=== PATIENT | female | born 1955 | race Hispanic/Latino ===

== ENCOUNTER 2017-02-10 08:00 | Outpatient (CLI) | payer BC | END 2017-02-10 08:01 | disposition home or self-care (01) | LOC: BICMAMMO 08:00 | PROVIDERS: ATTEND Internal Medicine | DX: Z12.31 Encounter for screening mammogram for malignant neoplasm of breast (principal) | CPT/HCPCS: 77063; 77067; G0202 ==

== ENCOUNTER 2017-08-09 10:09 | Outpatient (CLI) | payer BC | END 2017-08-09 10:10 | disposition home or self-care (01) | LOC: BICRAD 10:09 | PROVIDERS: ATTEND Internal Medicine | DX: M54.9 Dorsalgia, unspecified (principal); M47.896 Other spondylosis, lumbar region; M47.894 Other spondylosis, thoracic region | CPT/HCPCS: 72072; 72100 ==

== ENCOUNTER 2018-01-24 07:25 | Emergency (ER) | payer BC ==
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
== END 2018-01-24 09:10 | disposition home or self-care (01) ==
LOC: ERS 07:25
DX: S20.219A Contusion of unspecified front wall of thorax, initial encounter (principal); I10 Essential (primary) hypertension; K21.9 Gastro-esophageal reflux disease without esophagitis; Z87.891 Personal history of nicotine dependence; Z79.899 Other long term (current) drug therapy; V43.62XA Car passenger injured in collision with other type car in traffic accident, initial encounter
CPT/HCPCS: 71046; G0390

== ENCOUNTER 2018-04-17 12:41 | Emergency (ER) | payer BC ==
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
[2018-04-17] MEDS ORDERED: Ketorolac Tromethamine 30 MG/ML VIAL ONE (16:25)
== END 2018-04-17 16:50 | disposition home or self-care (01) ==
LOC: ERS 12:41
DX: M25.561 Pain in right knee (principal); K21.9 Gastro-esophageal reflux disease without esophagitis; I10 Essential (primary) hypertension
CPT/HCPCS: 96372; J1885

== ENCOUNTER 2019-01-08 13:07 | Outpatient (CLI) | payer BC ==
--- NOTE | 2019-01-08 15:33 | BD ---
DEXA BONE DENSITY STUDY: HISTORY: Postmenopausal. LUMBAR SPINE BMD (g/cm2) T-SCORE L1 0.925 -0.6 L2 0.956 -0.7 L3 0.874 -1.9 L4 0.865 -1.8 TOTAL 0.902 -1.3 LEFT FEMORAL NECK 0.675 -1.6 TOTAL 0.915 -0.2 IMPRESSION: 1. Osteopenia of the lumbar spine and left femoral neck. 2. The 10 year fracture risk for a major osteoporotic fracture is 9.7% and for a hip fracture is 1%. These fracture probabilities are calculated for an untreated patient. POS: [facility]
== END 2019-01-08 13:08 | disposition home or self-care (01) ==
LOC: BICMAMMO 13:07
PROVIDERS: ATTEND Internal Medicine
DX: Z13.820 Encounter for screening for osteoporosis (principal); Z78.0 Asymptomatic menopausal state; M85.89 Other specified disorders of bone density and structure, multiple sites
CPT/HCPCS: 77063; 77067; 77080

== ENCOUNTER 2019-02-08 12:39 | Outpatient (CLI) | payer BC ==
--- NOTE | 2019-02-08 13:26 | MMO ---
Bilateral MAMMO Bilat Screen DDI+WILMA. CLINICAL HISTORY: Patient is 63 years old and is seen for screening. The patient has no family history of breast cancer. The patient has no personal history of cancer. VIEWS: The views performed were: bilateral craniocaudal with tomosynthesis and bilateral mediolateral oblique with tomosynthesis. FILMS COMPARED: The present examination has been compared to prior imaging studies performed at [facility] on 02/04/2015, 02/11/2015, 02/10/2016 and 02/10/2017. This study has been interpreted with the assistance of computer-aided detection. MAMMOGRAM FINDINGS: The breasts are heterogeneously dense, which could obscure a lesion on mammography. There is a new low density, oval mass measuring 16 millimeters with circumscribed margins seen in the left breast at 12 o'clock. In the right breast, there are no suspicious masses, calcifications or areas of architectural distortion. IMPRESSION: NEW MASS IN THE LEFT BREAST REQUIRES ADDITIONAL EVALUATION. AN ULTRASOUND EXAM IS RECOMMENDED. THE RESULTS OF THIS EXAM WERE SENT TO THE PATIENT. ACR BI-RADS Category 0 - Incomplete: Need additional imaging evaluation. [facility] will notify the patient of the need for additional imaging services. MAMMOGRAPHY NOTE: 1. A negative mammogram report should not delay a biopsy if a dominant of clinically suspicious mass is present. 2. Approximately 10% to 15% of breast cancers are not detected by mammography. 3. Adenosis and dense breasts may obscure an underlying neoplasm. Reported by: MANUEL RAJPUT MD Electonically Signed: [id number]
== END 2019-02-08 12:40 | disposition home or self-care (01) ==
LOC: BICMAMMO 12:39
PROVIDERS: ATTEND Internal Medicine
DX: Z12.31 Encounter for screening mammogram for malignant neoplasm of breast (principal); N63.20 Unspecified lump in the left breast, unspecified quadrant
CPT/HCPCS: 77063; 77067

== ENCOUNTER 2019-02-09 12:22 | Outpatient (CLI) | payer BC ==
--- NOTE | 2019-02-09 13:24 | ULT ---
LIMITED LEFT BREAST ULTRASOUND: 02/09/2019 PROVIDED CLINICAL HISTORY: Left breast mass. FINDINGS: Limited sonographic interrogation was performed at the 12 o'clock position of the left breast in the region of mammographic concern. There is an oval hypoechoic mass, measuring about 1.7 cm in greatest dimension. This demonstrates mild lobulation to some of the margins. There is no posterior shadowing. This represents a new finding mammographically when compared to the patient's next most recent mammo gram. IMPRESSION: BI-RADS category 4 - suspicious abnormality. Ultrasound guided biopsy is recommended. Results and recommendations discussed with the patient and q uestions answered. POS: OFF
--- NOTE | 2019-02-09 13:37 | MMO ---
Left Breast MAMMO Unilat Diag DDI LT+WILMA. CLINICAL HISTORY: Patient is 63 years old and is seen for additional evaluation requested at current screening. The patient has no family history of breast cancer. The patient has no personal history of cancer. VIEWS: The views performed were: left craniocaudal spot compression with tomosynthesis; left mediolateral oblique spot compression with tomosynthesis; and left mediolateral with tomosynthesis. FILMS COMPARED: The present examination has been compared to prior imaging studies performed at [facility] on 02/10/2016, 02/10/2017, 02/08/2019 and 02/09/2019. This study has been interpreted with the assistance of computer-aided detection. MAMMOGRAM FINDINGS: The breast is heterogeneously dense, which could obscure a lesion on mammography. There is an equal density, oval mass measuring 16 millimeters with circumscribed margins seen in the left breast at 12 o'clock. This appears solid by ultrasound and is new with respect to the 2017 study. IMPRESSION: MASS IN THE LEFT BREAST IS SUSPICIOUS. AN ULTRASOUND-GUIDED BREAST BIOPSY IS RECOMMENDED. RESULTS AND RECOMMENDATIONS DISCUSSED WITH THE PATIENT AND QUESTIONS ANSWERED. THE RESULTS OF THIS EXAM WERE SENT TO THE PATIENT. ACR BI-RADS Category 4 - Suspicious abnormality - biopsy should be considered MAMMOGRAPHY NOTE: 1. A negative mammogram report should not delay a biopsy if a dominant of clinically suspicious mass is present. 2. Approximately 10% to 15% of breast cancers are not detected by mammography. 3. Adenosis and dense breasts may obscure an underlying neoplasm. Reported by: MANUEL RAJPUT MD Electonically Signed: [id number]
== END 2019-02-09 12:23 | disposition home or self-care (01) ==
LOC: BICMAMMO 12:22
PROVIDERS: ATTEND Internal Medicine
DX: N63.20 Unspecified lump in the left breast, unspecified quadrant (principal)
CPT/HCPCS: G0279

== ENCOUNTER → 2019-02-16 | Day surgery (SDC) | payer BC ==
--- NOTE | 2019-02-16 13:40 | MMO ---
Left Breast MAMMO Unilat Diag DDI LT. CLINICAL HISTORY: Patient is 63 years old and is seen for diagnostic exam. The patient has no family history of breast cancer. The patient has no personal history of cancer. The patient has a history of left Ultrasound Guided Core Biopsy in February,. VIEWS: The views performed were: left craniocaudal and left mediolateral oblique. FILMS COMPARED: The present examination has been compared to prior imaging studies performed at [facility] on 02/10/2017, 02/08/2019 and 02/09/2019. This study has been interpreted with the assistance of computer-aided detection. MAMMOGRAM FINDINGS: The breast is heterogeneously dense, which could obscure a lesion on mammography. There is an oval mass measuring 16 millimeters with circumscribed margins and associated biopsy clip seen in the middle region of the left breast at 12 o'clock. IMPRESSION: MASS IN THE LEFT BREAST IS SUSPICIOUS. THE RESULTS OF THIS EXAM WERE SENT TO THE PATIENT. ACR BI-RADS Category 4 - Suspicious abnormality - biopsy should be considered MAMMOGRAPHY NOTE: 1. A negative mammogram report should not delay a biopsy if a dominant of clinically suspicious mass is present. 2. Approximately 10% to 15% of breast cancers are not detected by mammography. 3. Adenosis and dense breasts may obscure an underlying neoplasm. Reported by: LEONEL SNOW MD Electonically Signed: [id number]
--- NOTE | 2019-02-16 14:03 | ULT ---
ULTRASOUND GUIDED LEFT BREAST MASS BIOPSY: TECHNIQUE: Informed consent was obtained. Pre-procedure ultrasound identified the new suspicious mass in the lef t breast 12 o'clock position, 3 cm from the nipple. This lesion measured 1.8 x 0.8 x 1.4 cm. This cor responds to the new mass seen on the left breast diagnostic mammogram. Two additional masses are seen in the left breast 1 o'clock position, the largest measuring 1.5 x 0.6 cm and the smallest measuring 0.6 cm with associated dystrophic calcification. These likely correspond to mass-like densities seen on prior screening mammograms. The new mass lesion is seen within the left breast 12 o'clock positio n, 3 cm from the nipple. The site overlying this lesion was prepped and draped in the usual sterile f ashion. Buffered 1% Lidocaine was administered to overlying subcutaneous tissues. A small dermatotomy was made overlying the lesion. A 14 gauge core biopsy needle was guided down to the lesion. Four sep arate core samples were obtained of the lesion. A biopsy clip was then placed within the lesion. Pres sure was held at the biopsy site until hemostasis was obtained. The patient tolerated the biopsy with out difficulty. FINDINGS: 1. BI-RADS category 4 - suspicious abnormality. 2. Status post ultrasound guided core biopsy of the new mass lesion seen in the left breast 12 o'cloc k position, 3 cm from the nipple; awaiting pathology results. POS: OFF
== END ==
LOC: BICULT 12:15
PROVIDERS: ATTEND Internal Medicine
PROC: 0H9U3ZX Drainage of Left Breast, Percutaneous Approach, Diagnostic (ICD-10-PCS; principal; 2019-02-16)
DX: N63.25 Unspecified lump in the left breast, overlapping quadrants (principal)
CPT/HCPCS: 19083; 88305

== ENCOUNTER 2020-01-15 06:33 | Outpatient (CLI) | payer BC ==
[2020-01-15 11:04] LABS: #Eosinphils 0.1 10x3/uL (0.0-0.5); #Monocytes 0.4 10x3/uL (0.0-1.1); #Neutrophils 3.3 10x3/uL (1.5-8.4); %Basophils 0.5 % (0.0-2.0); %Eosinophils 1.6 % (0.0-6.0); %Lymphocytes 31.3 % (18.0-47.0); %Monocytes 7.5 % (0.0-10.0); %Neutrophils 58.6 % (40.0-75.0); Mean Corpuscular HGB CONC 31.6 G/DL (32.0-36.0); Mean Corpuscular Hemoglobin 29.9 PG (27.0-33.0); Mean Corpuscular Volume 94.8 fl (80.0-100.0); Mean Platelet Volume 12.1 fl (7.4-10.4); Platelet Count 169 10x3/uL (130-400); RBC Distribution Width 13.2 % (11.5-14.5); Red Blood Cell (RBC) Count 4.01 10x6/uL (3.90-5.20); White Blood Cell (WBC) Count 5.6 10x3/uL (4.5-11.0)
[2020-01-15 11:18] LABS: ALT (SGPT) 17 U/L (8-55); AST (SGOT) 16 U/L (5-34); Albumin 4.3 g/dL (3.4-4.8); Alkaline Phosphatase 93 U/L (40-110); Anion Gap 12 mmol/L (10-20); BUN (Urea Nitrogen) 16 mg/dL (9.8-20.1); Bilirubin, Total 0.4 mg/dL (0.2-1.2); Calc. Creatinine Clearance 0 mL/min (70-130); Carbon Dioxide 28 mmol/L (23-31); Chloride 104 mmol/L (98-107); Estimated GFR-MDRD 90; Globulin 2.9 g/dL (2.4-3.5); Glucose 118 mg/dL (80-115); Potassium 3.8 mmol/L (3.5-5.1); Protein, Total 7.2 g/dL (6.0-8.3); Sodium 140 mmol/L (136-145)
[2020-01-15 20:04] LABS: SARS-CoV-2 MS2 Positive; SARS-CoV-2 N Gene Negative; SARS-CoV-2 S Gene Negative; SARS-CoV-2 by NAA Not Detected (NotDetected); SARS-CoV-2 orf1ab Negative
== END 2020-01-15 06:34 | disposition home or self-care (01) ==
LOC: LABBT 06:33
PROVIDERS: ATTEND Internal Medicine Cardiovascular Disease
DX: Z01.812 Encounter for preprocedural laboratory examination (principal); Z20.828 Contact with and (suspected) exposure to other viral communicable diseases
CPT/HCPCS: 80053; 85025; 87635; U0003

== ENCOUNTER 2020-01-17 10:30 | Inpatient (IN) | payer BC ==
[2020-01-28 15:18] VITALS: BMI 45.4
[2020-01-29] MEDS ORDERED: PROPOFOL 200 MG/20 ML VIAL ONE (10:14)
[2020-01-29] MEDS ORDERED: Bupivacaine HCl 0.5%/Epinephrine 1:200,000/PF 30 ml Vial ONE (10:14)
[2020-01-29] MEDS ORDERED: Ondansetron PF 4 MG/2 ML Vial ONE (10:14)
[2020-01-29] MEDS ORDERED: Glycopyrrolate 0.2 MG/ML 5 ML SYRINGE ONE (10:14)
[2020-01-29] MEDS ORDERED: Succinylcholine 200 MG/10 ml SYRINGE FS ONE (10:14)
[2020-01-29] MEDS ORDERED: Ketorolac Tromethamine 30 MG/ML VIAL ONE (10:14)
[2020-01-29] MEDS ORDERED: Rocuronium Bromide 10 MG/ML (10ML VIAL) ONE (10:14)
[2020-01-29] MEDS ORDERED: Dexamethasone 20 MG/5 ML VIAL ONE (10:14)
[2020-01-29] MEDS ORDERED: Ropivacaine 0.2% HCl/PF (40 MG/20 ML VIAL) ONE (10:14)
[2020-01-29] MEDS ORDERED: Lidocaine 1% PF 5 ML VIAL ONE (10:14)
[2020-01-29] MEDS ORDERED: Metoclopramide HCl 10 MG/2 ML VIAL ONE (10:14)
[2020-01-29] MEDS ORDERED: Tranexamic Acid 1,000 MG/10 ML VIAL ONE (11:59)
[2020-01-29] MEDS ORDERED: Sodium Chloride 0.9% 100 ML ONE (11:59)
[2020-01-29] MEDS ORDERED: Midazolam HCl 2 mg/2 ml Vial ONE (12:51)
[2020-01-29] MEDS ORDERED: Fentanyl 100 MCG/2 ML VIAL ONE ×4 (12:51→17:01)
[2020-01-29] MEDS ORDERED: Fentanyl 100 MCG/2 ML VIAL IV PRN (12:58)
[2020-01-29] MEDS ORDERED: HYDROcodone/Acetaminophen 10/325 mg Tablet PO PRN ×2 (13:00)
[2020-01-29] MEDS ORDERED: Promethazine HCl 25 MG/ML VIAL IM PRN ×4 (13:00→17:15)
[2020-01-29] MEDS ORDERED: Zolpidem Tartrate 5 MG TAB PO PRN ×2 (13:00→14:34)
[2020-01-29] MEDS ORDERED: Ondansetron PF 4 MG/2 ML Vial IVP PRN ×3 (13:00→17:15)
[2020-01-29] MEDS ORDERED: Ropivacaine HCl/PF 250 ML in Premix Bag 1 BAG NERVE BLCK SCH (13:00)
[2020-01-29] MEDS ORDERED: traMADol HCl 50 MG TAB PO PRN ×2 (13:00)
[2020-01-29] MEDS ORDERED: Famotidine/PF 20 mg/2ml Vial ONE (13:41)
[2020-01-29] MEDS ORDERED: Acetaminophen 325 MG TAB PO PRN (14:34)
[2020-01-29] MEDS ORDERED: diphenhydrAMINE 25 MG CAP PO PRN ×2 (14:34→17:15)
[2020-01-29] MEDS ORDERED: Acetaminophen 500 MG TAB PO PRN (14:35)
[2020-01-29] MEDS ORDERED: Promethazine HCl 25 MG/ML VIAL SLOW IVP PRN (15:57)
[2020-01-29] MEDS ORDERED: Ondansetron HCl/PF 4 MG/2 ML Vial IVP PRN (15:57)
--- NOTE | 2020-01-29 17:14 | RAD ---
Exam:Right knee 2 views HISTORY: Status post arthroplasty COMPARISON: None FINDINGS: Expected postoperative changes. Near anatomic alignment. IMPRESSION: Findings compatible with a right knee arthroplasty.
[2020-01-29] MEDS ORDERED: diphenhydrAMINE 50 MG/ML VIAL IVP PRN (17:15)
[2020-01-29] MEDS ORDERED: Naloxone HCl 0.4 mg/ml Vial IV PRN (17:15)
[2020-01-29] MEDS ORDERED: Communication Order-Pharmacy FS SCH (17:15)
[2020-01-29] MEDS ORDERED: diphenhydrAMINE 50 MG/ML VIAL IM PRN (17:15)
[2020-01-29] MEDS ORDERED: Ketorolac Tromethamine 30 MG/ML VIAL IVP SCH (18:00)
[2020-01-29] MEDS ORDERED: CEFAZOLIN 2 GM in Premix Bag 1 BAG IVPB SCH (20:00)
[2020-01-29] MEDS: CEFAZOLIN 2 GM in Premix Bag 1 BAG IVPB SCH (23:13)
[2020-01-29] MEDS: Ketorolac Tromethamine 30 MG/ML VIAL IVP SCH (23:14)
[2020-01-29] MEDS: Aspirin 81 mg Enteric Coated Tablet PO SCH (23:14)
[2020-01-30] MEDS: Zolpidem Tartrate 5 MG TAB PO PRN (00:48)
[2020-01-30] MEDS: Ketorolac Tromethamine 30 MG/ML VIAL IVP SCH ×4 (03:05→20:10)
[2020-01-30] MEDS: CEFAZOLIN 2 GM in Premix Bag 1 BAG IVPB SCH (05:47)
--- NOTE | 2020-01-30 07:21 | OP ---
DATE OF PROCEDURE: 01/29/2020 PROCEDURE PERFORMED: Right total knee arthroplasty using Michelle Triathlon 3 femur, 3 tibia, 9-mm CS X3 polyethylene and A29 patella. OUTREACH PROFESSIONAL: Hay Martínez PA-C The assistant production editor/co-surgeon was present through the entire procedure and was responsible for providing exposure, tissue retraction and any necessary limb or tissue manipulation required to obtain necessary reduction or hardware placement. The assistant production editor/co-surgeon also provided bleeding control, tissue closure, and suturing in conjunction with the primary surgeon. BLOOD LOSS: Minimal. SPECIMEN: None. DRAINS: None. COMPLICATION: None. PROCEDURE IN DETAIL: After informed consent was obtained in the preoperative holding area, the patient was taken to the operative suite where general anesthesia was induced. Once adequate level of general anesthesia was obtained, the patient was positioned and a well-padded tourniquet was placed around the right proximal thigh. The right lower extremity was then prepped and draped in the usual sterile fashion. Prior to exsanguination, a time-out was called and all members of the surgical team agreed upon site, surgeon, and patient. The extremity was then exsanguinated and the tourniquet was raised. A midline longitudinal incision was then made directly over the patella extending 2 fingerbreadths above the superior pole of the patella and 2 fingerbreadths inferior to the inferior patellar pole of the patella. Deeper subcutaneous layers were dissected sharply and local bleeding was controlled with Bovie electrocautery. A quad tendon longitudinal split was then made sharply and a median parapatellar arthrotomy was carried out both sharp and with Bovie electrocautery, carried down to 1 fingerbreadth medial to the tibial tubercle. The knee was then placed into flexion and the patella was everted nicely, and a copious fat pad ectomy was performed allowing for greater exposure of the tibia. The computer-assisted distal femoral fiducial was then placed and pinned firmly, and the distal femoral cutting guide was pinned firmly into place. The oscillating saw was then used to remove the appropriate amount of bone. The 4-in-1 cutting block was then placed on the distal femur and the oscillating saw was used to remove the appropriate amount of bone off the anterior, posterior, and chamfer cuts. After completion of bone cuts, the anterior cruciate ligament was resected sharply and the posterior cruciate ligament retractor was placed and the tibia was subluxed for better exposure. Partial meniscectomies were carried out, and the tibial computer-assisted fiducial was pinned, and the cutting guide was placed. Oscillating saw was then used to remove the bone, with Hohmann retractors used to take care and protect the collateral ligaments. After the tibial resection was performed, a laminar rubber molder was placed in between the freshened bone cuts. The knee placed at 90 degrees and further bilateral meniscectomies were carried out, and the curved osteotome and curettage were used to remove any excess bone spurs in the posterior compartment. The trial femoral component, tibial baseplate were placed with the appropriate polyethylene trial insert with an appropriate polyethylene spacer and patellar button. The knee was taken through full range of motion with flexion and extension from 0 to 90 degrees and patellar broach squarely in the trochlea without any squinting or subluxation noted. The knee was also stable to varus and valgus stressing at 0, 15, 45, and 90 degrees of flexion. The drawer was negative. All trial components were then removed and the keel punch was used to provide the appropriate defect in the tibia with a mallet. The freshened bone cuts were copiously irrigated with pulsatile lavage of about 1.5 L to remove all excess debris. The freshened bone cuts were then dried with suction and lap sponge. The knee was placed in flexion and retractors were placed to provide access to all bone cuts. Tobramycin-impregnated methyl methacrylate cement was then placed on the freshened bone cuts and implants which were malleted firmly into place. Curettage and [place] elevators were used to remove any excess bone cement. The knee was placed into full extension and the patellar button was placed under compression, and the cement was allowed to cure. Once completed, the components were again taken through full range of motion and copious irrigation of the knee was carried out with another liter of normal saline. All components were inspected fully with full range of motion and varus and valgus stressing. There was no laxity noted and full extension was observed clinically. Primary closure was accomplished with #2 interrupted Vicryl stitch of the arthrotomy defect. This was oversewn with a #2 running Quill barbed stitch. The gravitational platelet system was then injected into the arthrotomy prior to closure. The subcutaneous layer was then closed with a running 0 barbed Monocryl stitch and skin closure accomplished with a running subcuticular 3-0 Monocryl barbed Quill stitch and augmented with cement on the skin. Tourniquet was lowered. Good spontaneous return of distal pulses was noted clinically and a sterile dressing was applied to the incision. The procedure was terminated without any complications. The patient was awakened in the operative suite and the was removed, and the patient was taken to the recovery room in stable condition. Job ID: [id number]
[2020-01-30] MEDS: Multivitamin W/ Minerals 1 TAB PO SCH (09:43)
[2020-01-30] MEDS: Senokot S 8.6-50 MG TAB PO SCH ×2 (09:43→20:10)
[2020-01-30] MEDS: Ferrous Gluconate 324 MG TAB PO SCH ×2 (09:44→20:10)
[2020-01-30] MEDS ORDERED: Acetaminophen 500 MG TAB ONE (10:30)
[2020-01-30] MEDS: Cholecalciferol 1,000 UNITS (25 MCG) TAB PO SCH ×2 (10:57→10:59)
[2020-01-30] MEDS: Hydrochlorothiazide 25 MG TAB PO SCH (10:58)
[2020-01-30] MEDS: Acetaminophen 500 MG TAB PO SCH ×3 (10:59→20:09)
[2020-01-30] MEDS: Aspirin 81 mg Enteric Coated Tablet PO SCH ×2 (10:59→20:10)
[2020-01-30] MEDS: Cyanocobalamin (Vitamin B-12) 1,000 MCG TAB PO SCH (11:00)
[2020-01-30 11:49] LABS: Hemoglobin 12.3 g/dL (12.0-16.0); Mean Corpuscular HGB CONC 32.7 g/dL (32.0-36.0); Mean Corpuscular Volume 94.7 fL (78.0-98.0); Mean Platelet Volume 9.7 fL (7.4-10.4); Platelet Count 182 thou/uL (130-400); RBC Distribution Width 12.9 % (11.5-14.5); Red Blood Cell (RBC) Count 3.98 mill/uL (4.20-5.40); White Blood Cell (WBC) Count 12.9 thou/uL (4.8-10.8)
[2020-01-30] MEDS: Losartan 25 MG TAB PO SCH (11:59)
[2020-01-30] MEDS ORDERED: Ketorolac Tromethamine 30 MG/ML VIAL ONE (15:17)
[2020-01-31] MEDS: fentaNYL Citrate/PF 2,000 MCG in Sodium Chloride 0.9% 60 ML IV PRN (00:51)
[2020-01-31] MEDS: Ketorolac Tromethamine 30 MG/ML VIAL IVP SCH ×3 (02:37→19:16)
[2020-01-31] MEDS: Acetaminophen 500 MG TAB PO SCH ×2 (02:37→08:58)
[2020-01-31 05:28] LABS: Hemoglobin 10.2 g/dL (12.0-16.0); Mean Corpuscular HGB CONC 33.1 g/dL (32.0-36.0); Mean Corpuscular Volume 93.7 fL (78.0-98.0); Mean Platelet Volume 10.4 fL (7.4-10.4); Platelet Count 156 thou/uL (130-400); RBC Distribution Width 12.9 % (11.5-14.5); Red Blood Cell (RBC) Count 3.29 mill/uL (4.20-5.40); White Blood Cell (WBC) Count 8.4 thou/uL (4.8-10.8)
[2020-01-31] MEDS: Cholecalciferol 1,000 UNITS (25 MCG) TAB PO SCH (08:57)
[2020-01-31] MEDS: Losartan 25 MG TAB PO SCH (08:58)
[2020-01-31] MEDS: Hydrochlorothiazide 25 MG TAB PO SCH (08:59)
[2020-01-31] MEDS: Ferrous Gluconate 324 MG TAB PO SCH ×2 (08:59→20:40)
[2020-01-31] MEDS: Aspirin 81 mg Enteric Coated Tablet PO SCH ×2 (08:59→20:40)
[2020-01-31] MEDS: Multivitamin W/ Minerals 1 TAB PO SCH (09:00)
[2020-01-31] MEDS ORDERED: FLU VACC QS2020-21(65YR UP)/PF 240 MCG/0.7 ML SYRINGE IM ONE (09:00)
[2020-01-31] MEDS: Cyanocobalamin (Vitamin B-12) 1,000 MCG TAB PO SCH (09:02)
[2020-01-31] MEDS: Senokot S 8.6-50 MG TAB PO SCH ×2 (10:24→20:40)
--- NOTE | 2020-01-31 12:13 | PRG ---
DATE OF SERVICE: 01/31/2020 SUBJECTIVE: Tiffany is a 64-year-old female postop day 2 right total knee arthroplasty. She is moving a little slow, has not quite reached independence at this point. Pain controls decent but not absolute. OBJECTIVE: VITAL SIGNS: Temperature 97.4, pulse 54, respiratory rate 18, and blood pressure 137/57. GENERAL: She is alert and oriented to person, place, time, and situation, responsive and appropriate with the examiner and pleasant. Her incision is clean. No erythema. No strikethrough. LABORATORY DATA: Hemoglobin and hematocrit of 10.2 and 30.8. IMPRESSION: A 64-year-old female, postop day 2 right total knee arthroplasty. PLAN: Continue physical therapy. I would like to see her ambulating greater distances in independence with in and out of bed before discharge home, which is I can expect probably by tomorrow. Job ID: [id number]
[2020-01-31] MEDS ORDERED: Ropivacaine HCl/PF 125 ML in Sodium Chloride 0.9% 125 ML NERVE BLCK SCH (19:30)
[2020-01-31] MEDS: Zolpidem Tartrate 5 MG TAB PO PRN (22:04)
[2020-02-01 05:31] LABS: Hemoglobin 9.7 g/dL (12.0-16.0); Mean Corpuscular HGB CONC 33.2 g/dL (32.0-36.0); Mean Corpuscular Hemoglobin 30.9 pg (27.0-31.0); Mean Platelet Volume 9.6 fL (7.4-10.4); Platelet Count 150 thou/uL (130-400); RBC Distribution Width 12.9 % (11.5-14.5); Red Blood Cell (RBC) Count 3.14 mill/uL (4.20-5.40)
[2020-02-01] MEDS: fentaNYL Citrate/PF 2,000 MCG in Sodium Chloride 0.9% 60 ML IV PRN (05:50)
[2020-02-01] MEDS: Senokot S 8.6-50 MG TAB PO SCH ×2 (09:11→20:12)
[2020-02-01] MEDS: Cyanocobalamin (Vitamin B-12) 1,000 MCG TAB PO SCH (09:11)
[2020-02-01] MEDS: Aspirin 81 mg Enteric Coated Tablet PO SCH ×2 (09:11→20:12)
[2020-02-01] MEDS: Cholecalciferol 1,000 UNITS (25 MCG) TAB PO SCH (09:12)
[2020-02-01] MEDS: Multivitamin W/ Minerals 1 TAB PO SCH (09:12)
[2020-02-01] MEDS: Hydrochlorothiazide 25 MG TAB PO SCH (09:12)
[2020-02-01] MEDS: Losartan 25 MG TAB PO SCH (09:12)
[2020-02-01] MEDS: Ferrous Gluconate 324 MG TAB PO SCH ×2 (09:13→20:12)
[2020-02-01] MEDS: HYDROcodone/Acetaminophen 10/325 mg Tablet PO PRN ×3 (14:30→23:56)
--- NOTE | 2020-02-01 15:35 | PRG ---
DATE OF SERVICE: 02/01/2020 SUBJECTIVE: Tiffany is a 64-year-old female postop day 3 from a right total knee arthroplasty. She is moving little slow today. She has only ambulated distances of 90 to 100 feet. I am little disappointed with this progress, therefore, I am going to hold her discharge and also her [employer] C[employer]IAN was discontinued today and she is having some issues with pain. OBJECTIVE: VITAL SIGNS: Stable. Temperature 98.2, pulse 63, respiratory rate 17 and unlabored, O2 saturation 95% on room air, and blood pressure 142/72. GENERAL: She is alert and oriented to person, place, time, situation, responsive and appropriate with the examiner, conversive. Incision is clean. No strike through. No erythema. Normal incisions observed. No strike through. IMPRESSION: A 64-year-old female postop day 3, right total knee arthroplasty, slow to progress. PLAN: Hold her discharge for now, but I expect discharge in the morning and we will recheck her then, but I will leave standing orders for nursing staff that the patient may be discharged to home tomorrow morning. Job ID: [id number]
[2020-02-01] MEDS: Zolpidem Tartrate 5 MG TAB PO PRN (23:56)
[2020-02-02] MEDS: HYDROcodone/Acetaminophen 10/325 mg Tablet PO PRN ×3 (05:25→12:48)
[2020-02-02 05:53] LABS: Hemoglobin 9.7 g/dL (12.0-16.0); Mean Corpuscular HGB CONC 33.5 g/dL (32.0-36.0); Mean Corpuscular Hemoglobin 31.5 pg (27.0-31.0); Mean Corpuscular Volume 94.2 fL (78.0-98.0); Mean Platelet Volume 9.4 fL (7.4-10.4); Platelet Count 152 thou/uL (130-400); RBC Distribution Width 12.9 % (11.5-14.5); Red Blood Cell (RBC) Count 3.09 mill/uL (4.20-5.40)
[2020-02-02] MEDS: Hydrochlorothiazide 25 MG TAB PO SCH (09:17)
[2020-02-02] MEDS: Ferrous Gluconate 324 MG TAB PO SCH (09:17)
[2020-02-02] MEDS: Cholecalciferol 1,000 UNITS (25 MCG) TAB PO SCH (09:17)
[2020-02-02] MEDS: Aspirin 81 mg Enteric Coated Tablet PO SCH (09:17)
[2020-02-02] MEDS: Multivitamin W/ Minerals 1 TAB PO SCH (09:17)
[2020-02-02] MEDS: Losartan 25 MG TAB PO SCH (09:17)
[2020-02-02] MEDS: Cyanocobalamin (Vitamin B-12) 1,000 MCG TAB PO SCH (09:18)
[2020-02-02] MEDS: Senokot S 8.6-50 MG TAB PO SCH (09:22)
[2020-02-02 11:36] VITALS: BP 114/64; TEMP 98.5
== END 2020-02-02 13:22 | disposition home or self-care (01) | DRG 470 ==
LOC: SURG B 01-29 11:28 → SURG A 01-30 15:51
PROVIDERS: ADMIT Orthopaedic Surgery; ATTEND Orthopaedic Surgery
PROC: 0SRC0J9 Replacement of Right Knee Joint with Synthetic Substitute, Cemented, Open Approach (ICD-10-PCS; principal; 2020-01-29)
DX: M17.11 Unilateral primary osteoarthritis, right knee (principal); I10 Essential (primary) hypertension; E78.5 Hyperlipidemia, unspecified; Z90.49 Acquired absence of other specified parts of digestive tract; Z79.899 Other long term (current) drug therapy; G47.33 Obstructive sleep apnea (adult) (pediatric); E88.81 Metabolic syndrome and other insulin resistance
CPT/HCPCS: 36415; 85027; C1713; C1776; J0690; J1100; J1885; J2250; J2405; J2704; J2765; J2795; J3010; J3490; S0028

== ENCOUNTER 2020-01-18 05:57 | Day surgery (SDC) | payer BC ==
[2020-01-17 10:03] VITALS: BMI 45.6
[2020-01-18] MEDS ORDERED: Nitroglycerin 100MG/250ML BOT 250 ML ONE (07:10)
[2020-01-18] MEDS ORDERED: Verapamil 5 MG/2 ML VIAL ONE (07:10)
[2020-01-18] MEDS ORDERED: Heparin 10,000 UNITS/ 10 ML VIAL ONE (07:10)
[2020-01-18] MEDS ORDERED: Fentanyl 100 MCG/2 ML VIAL ONE (07:15)
[2020-01-18] MEDS ORDERED: Midazolam HCl 2 mg/2 ml Vial ONE (07:15)
[2020-01-18] MEDS ORDERED: hydrALAZINE 20 MG/ML VIAL ONE ×2 (07:41→11:41)
[2020-01-18] MEDS ORDERED: Acetaminophen/Codeine 30-300mg Tablet ONE (12:17)
[2020-01-18] MEDS ORDERED: Acetaminophen/Codeine 30-300mg Tablet PO PRN ×2 (12:45)
[2020-01-18] MEDS ORDERED: Nitroglycerin 0.4 MG TAB (25 Tab Bottle) SL PRN (12:45)
[2020-01-18] MEDS ORDERED: Sodium Chloride 0.9% 1,000 ML IV SCH (12:45)
[2020-01-18] MEDS ORDERED: hydrALAZINE 20 MG/ML VIAL SLOW IVP SCH (12:45)
[2020-01-18] MEDS ORDERED: Iopamidol 370 76% 100 ML VIAL ONE (13:34)
== END 2020-01-18 13:06 | disposition home or self-care (01) ==
LOC: CCL 05:57
PROVIDERS: ATTEND Internal Medicine Cardiovascular Disease
PROC: 4A023N7 Measurement of Cardiac Sampling and Pressure, Left Heart, Percutaneous Approach (ICD-10-PCS; principal; 2020-01-18)
PROC: B2111ZZ Fluoroscopy of Multiple Coronary Arteries using Low Osmolar Contrast (ICD-10-PCS; principal; 2020-01-18)
DX: R94.39 Abnormal result of other cardiovascular function study (principal); R06.09 Other forms of dyspnea; G47.33 Obstructive sleep apnea (adult) (pediatric); I10 Essential (primary) hypertension; Z79.899 Other long term (current) drug therapy; Z87.891 Personal history of nicotine dependence
CPT/HCPCS: 93458; 99152; J0360; J1644; J2250; J3010; Q9967

== ENCOUNTER 2020-01-24 06:38 | Outpatient (CLI) | payer BC ==
[2020-01-24 14:33] LABS: Bilirubin Neg (Negative); Blood, Urine Negative (Negative); Clarity Clear (Clear); Glucose, Urine (Dipstick) Normal (Negative); Ketone, Urine Negative (Negative); Leukocyte 25 (Negative); Nitrite Negative (Negative); Protein, Urine (Dipstick) Negative (Neg-Trace); Specific Gravity, Urine 1.015 (1.002-1.036); Urobilinogen Normal mg/dL (Less than 2)
[2020-01-24 14:40] LABS: #Eosinphils 0.1 10x3/uL (0.0-0.5); #Monocytes 0.5 10x3/uL (0.0-1.1); %Basophils 0.3 % (0.0-2.0); %Eosinophils 1.4 % (0.0-6.0); %Lymphocytes 28.1 % (18.0-47.0); %Monocytes 7.8 % (0.0-10.0); %Neutrophils 62.1 % (40.0-75.0); Hemoglobin 12.4 g/dL (12.0-16.0); Mean Corpuscular HGB CONC 32.2 G/DL (32.0-36.0); Mean Corpuscular Hemoglobin 30.2 PG (27.0-33.0); Mean Corpuscular Volume 93.7 fl (80.0-100.0); Mean Platelet Volume 12.3 fl (7.4-10.4); Platelet Count 167 10x3/uL (130-400); RBC Distribution Width 13.4 % (11.5-14.5); Red Blood Cell (RBC) Count 4.11 10x6/uL (3.90-5.20); White Blood Cell (WBC) Count 6.4 10x3/uL (4.5-11.0)
[2020-01-24 14:53] LABS: Anion Gap 15 mmol/L (10-20); BUN (Urea Nitrogen) 18 mg/dL (9.8-20.1); Calc. Creatinine Clearance 0 mL/min (70-130); Calcium 8.9 mg/dL (7.8-10.44); Carbon Dioxide 28 mmol/L (23-31); Chloride 104 mmol/L (98-107); Glucose 101 mg/dL (80-115); Potassium 3.8 mmol/L (3.5-5.1); Sodium 143 mmol/L (136-145)
[2020-01-24 15:02] LABS: Prothrombin Time 10.4 sec (9.5-12.1)
[2020-01-24 15:05] LABS: Squamous Epithelial 0-3 HPF (0-3)
[2020-01-24 15:06] LABS: RBC/HPF 0-3 HPF (0-3)
[2020-01-24 15:07] LABS: Bacteria/HPF Rare-Few HPF (None Seen)
[2020-01-25 03:12] LABS: SARS-CoV-2 MS2 Positive; SARS-CoV-2 N Gene Negative; SARS-CoV-2 S Gene Negative; SARS-CoV-2 by NAA Not Detected (NotDetected); SARS-CoV-2 orf1ab Negative
== END 2020-01-24 06:39 | disposition home or self-care (01) ==
LOC: LABBT 06:38
PROVIDERS: ATTEND Orthopaedic Surgery
DX: Z01.818 Encounter for other preprocedural examination (principal); M17.11 Unilateral primary osteoarthritis, right knee; Z20.828 Contact with and (suspected) exposure to other viral communicable diseases
CPT/HCPCS: 80048; 81001; 85025; 85610; 87081; 87635; 93005; 93010; U0003

== ENCOUNTER 2020-11-12 07:45 | Outpatient (CLI) | payer BC | END 2020-11-12 07:46 | disposition home or self-care (01) | LOC: BICMAMMO 07:45 | PROVIDERS: ATTEND Internal Medicine | DX: Z12.31 Encounter for screening mammogram for malignant neoplasm of breast (principal) | CPT/HCPCS: 77063; 77067 ==

== ENCOUNTER 2021-06-09 08:11 | Outpatient (CLI) | payer BC ==
[2021-06-09 21:11] LABS: SARS-CoV-2 PCR by NAA Not Detected (NotDetected)
== END 2021-06-09 08:12 | disposition home or self-care (01) ==
LOC: LABBT 08:11
PROVIDERS: ATTEND Internal Medicine Gastroenterology
DX: K21.9 Gastro-esophageal reflux disease without esophagitis (principal); R05.9 Cough, unspecified; Z86.010 Personal history of colon polyps; Z91.09 Other allergy status, other than to drugs and biological substances; Z20.822 Contact with and (suspected) exposure to COVID-19
CPT/HCPCS: U0003; U0005

== ENCOUNTER 2021-06-12 11:12 | Day surgery (SDC) | payer BC ==
[2021-06-10 14:01] VITALS: BMI 46.9
[2021-06-12] MEDS ORDERED: Lidocaine 1% PF 5 ML VIAL ONE (12:39)
[2021-06-12] MEDS ORDERED: PROPOFOL 200 MG/20 ML VIAL ONE (12:39)
== END 2021-06-12 14:05 | disposition home or self-care (01) ==
LOC: SDC 11:12
PROVIDERS: ATTEND Internal Medicine Gastroenterology
PROC: 0DB78ZX Excision of Stomach, Pylorus, Via Natural or Artificial Opening Endoscopic, Diagnostic (ICD-10-PCS; principal; 2021-06-12)
PROC: 0DB38ZX Excision of Lower Esophagus, Via Natural or Artificial Opening Endoscopic, Diagnostic (ICD-10-PCS; principal; 2021-06-12)
DX: K21.00 Gastro-esophageal reflux disease with esophagitis, without bleeding (principal); K31.89 Other diseases of stomach and duodenum; K44.9 Diaphragmatic hernia without obstruction or gangrene; R05.3 Chronic cough; M19.90 Unspecified osteoarthritis, unspecified site; I10 Essential (primary) hypertension; G47.30 Sleep apnea, unspecified; Z86.010 Personal history of colon polyps; Z86.16 Personal history of COVID-19; Z87.891 Personal history of nicotine dependence; Z79.82 Long term (current) use of aspirin; Z79.899 Other long term (current) drug therapy
CPT/HCPCS: 88305; 88342; J2704

== ENCOUNTER 2021-11-09 10:48 | Outpatient (CLI) | payer BC | END 2021-11-09 10:49 | disposition home or self-care (01) | LOC: BICRAD 10:48 | PROVIDERS: ATTEND Internal Medicine | DX: R05.9 Cough, unspecified (principal) | CPT/HCPCS: 71046 ==

== ENCOUNTER 2021-11-27 06:53 | Outpatient (CLI) | payer BC | END 2021-11-27 06:54 | disposition home or self-care (01) | LOC: BICULT 06:53 | PROVIDERS: ATTEND Physician Assistant Medical | DX: K21.9 Gastro-esophageal reflux disease without esophagitis (principal); R10.11 Right upper quadrant pain; R16.0 Hepatomegaly, not elsewhere classified; K76.0 Fatty (change of) liver, not elsewhere classified; E66.01 Morbid (severe) obesity due to excess calories; Z68.41 Body mass index [BMI] 40.0-44.9, adult; Z90.49 Acquired absence of other specified parts of digestive tract | CPT/HCPCS: 76705 ==

== ENCOUNTER 2022-02-25 10:56 | Outpatient (CLI) | payer BC | END 2022-02-25 10:57 | disposition home or self-care (01) | LOC: RAD 10:56 | PROVIDERS: ATTEND Physician Assistant | DX: R05.1 Acute cough (principal) | CPT/HCPCS: 71046 ==

== ENCOUNTER 2022-09-29 07:32 | Outpatient (CLI) | payer BC | END 2022-09-29 07:33 | disposition home or self-care (01) | LOC: BICULT 07:32 | PROVIDERS: ATTEND Internal Medicine | DX: E04.2 Nontoxic multinodular goiter (principal) | CPT/HCPCS: 76536 ==

== ENCOUNTER 2022-12-22 15:02 | Outpatient (CLI) | payer BC | END 2022-12-22 15:03 | disposition home or self-care (01) | LOC: BICMAMMO 15:02 | PROVIDERS: ATTEND Internal Medicine | DX: Z12.31 Encounter for screening mammogram for malignant neoplasm of breast (principal); Z91.89 Other specified personal risk factors, not elsewhere classified | CPT/HCPCS: 77063; 77067 ==

== ENCOUNTER 2023-08-25 16:00 | Outpatient (CLI) | payer BC | END 2023-08-25 16:01 | disposition home or self-care (01) | LOC: SLEEPLAB 16:00 | PROVIDERS: ATTEND Internal Medicine Critical Care Medicine | DX: G47.33 Obstructive sleep apnea (adult) (pediatric) (principal); R53.83 Other fatigue; R06.83 Snoring; G47.00 Insomnia, unspecified; I10 Essential (primary) hypertension | CPT/HCPCS: 95800 ==

== ENCOUNTER 2023-10-05 08:00 | Outpatient (CLI) | payer BC | END 2023-10-05 08:01 | disposition home or self-care (01) | LOC: BICMAMMO 08:00 | PROVIDERS: ATTEND Internal Medicine | DX: Z78.0 Asymptomatic menopausal state (principal); M81.0 Age-related osteoporosis without current pathological fracture; M85.851 Other specified disorders of bone density and structure, right thigh | CPT/HCPCS: 77080 ==

== ENCOUNTER → 2023-11-16 | Day surgery (SDC) | payer BC ==
[~2023-11-16] MED LIST: Sodium Bicarbonate 2.5 MEQ/5 ML SDV ONE
== END ==
LOC: ULT 12:32
PROVIDERS: ATTEND Otolaryngology Plastic Surgery within the Head & Neck
PROC: 0G9H3ZZ Drainage of Right Thyroid Gland Lobe, Percutaneous Approach (ICD-10-PCS; principal; 2023-11-16)
DX: E04.1 Nontoxic single thyroid nodule (principal); K21.9 Gastro-esophageal reflux disease without esophagitis; R09.89 Other specified symptoms and signs involving the circulatory and respiratory systems; I10 Essential (primary) hypertension; E78.5 Hyperlipidemia, unspecified; M19.90 Unspecified osteoarthritis, unspecified site; Z90.710 Acquired absence of both cervix and uterus; Z90.49 Acquired absence of other specified parts of digestive tract; Z98.890 Other specified postprocedural states; Z79.899 Other long term (current) drug therapy
CPT/HCPCS: 10005; 88173; 88305

== ENCOUNTER 2023-12-26 07:47 | Outpatient (CLI) | payer BC | END 2023-12-26 07:48 | disposition home or self-care (01) | LOC: BICMAMMO 07:47 | PROVIDERS: ATTEND Internal Medicine | DX: Z12.31 Encounter for screening mammogram for malignant neoplasm of breast (principal); Z91.89 Other specified personal risk factors, not elsewhere classified | CPT/HCPCS: 77063; 77067 ==

== ENCOUNTER 2025-01-02 07:41 | Outpatient (CLI) | payer BC | END 2025-01-02 07:42 | disposition home or self-care (01) | LOC: BICMAMMO 07:41 | PROVIDERS: ATTEND Internal Medicine | DX: Z12.31 Encounter for screening mammogram for malignant neoplasm of breast (principal); Z91.89 Other specified personal risk factors, not elsewhere classified | CPT/HCPCS: 77063; 77067 ==